=== PATIENT | female | born 1990 | race Caucasian/White ===

== ENCOUNTER → 2017-09-27 | Outpatient (CLI) | payer BC ==
[2017-09-27 11:14] LABS: EOS # 0.3 (0.04-0.40); HEMOGLOBIN 14.8 g/dL (12.5-16.0); LYMPH# 1.4 (1.50-4.00); MEAN CELL VOLUME 96 fl (78-100); MEAN CORPUSCULAR HEMOGLOBIN 32 pg (27-31); MEAN CORPUSCULAR HGB CONC 34 g/dL (33-37); MEAN PLATELET VOLUME 10.7 fl (7.4-10.4); MONO # 0.5 (0.20-0.80); NEU # 4.4 (1.40-6.50); PLATELET COUNT 186 K/mm3 (130-400); RED BLOOD COUNT 4.58 M/mm3 (4.10-5.30); RED CELL DISTRIBUTION WIDTH 12.9 % (11.5-14.5); WHITE BLOOD COUNT 6.6 K/mm3 (4.8-10.8)
[2017-09-27 11:20] LABS: ALBUMIN 4.3 g/dL (3.5-5.0); ALT/SGPT 26 U/L (9-52); AST-SGOT 18 U/L (14-36); BUN/CREATININE RATIO 26.2 (6.0-26.0); CALCIUM 9.1 mg/dL (8.4-10.2); CARBON DIOXIDE 28 mmol/L (22-30); GLUCOSE 96 mg/dL (65-105); SODIUM 143 mmol/L (137-145); TOTAL BILIRUBIN 0.5 mg/dL (0.2-1.3); TOTAL PROTEIN 7.6 g/dL (6.3-8.2)
== END ==
LOC: LAB 10:57
PROVIDERS: Family Medicine
DX: Z01.419 Encounter for gynecological examination (general) (routine) without abnormal findings (principal)

== ENCOUNTER → 2018-05-10 | Outpatient (CLI) | payer BC | LOC: LAB 19:15 | DX: Z32.01 Encounter for pregnancy test, result positive (principal) ==

== ENCOUNTER → 2019-04-24 | Outpatient (CLI) | payer BC | LOC: LAB 11:21 | PROVIDERS: Family Medicine | DX: Z11.1 Encounter for screening for respiratory tuberculosis (principal) ==

== ENCOUNTER → 2021-09-15 | Outpatient (CLI) | payer BC ==
[2021-09-15 15:13] LABS: BASO # 0.03 K/mm3 (0.02-0.10); EOS # 0.03 K/mm3 (0.04-0.40); EOS % 0.7 % (1.0-5.0); HEMOGLOBIN 14.7 g/dL (12.5-16.0); LYMPH# 0.62 K/mm3 (1.50-4.00); MEAN CELL VOLUME 94 fl (78-100); MEAN CORPUSCULAR HEMOGLOBIN 32 pg (27-31); MEAN CORPUSCULAR HGB CONC 34 g/dL (33-37); MEAN PLATELET VOLUME 9.8 fl (7.4-10.4); MONO # 0.47 K/mm3 (0.20-0.80); NEU # 3.18 K/mm3 (1.40-6.50); PLATELET COUNT 179 K/mm3 (130-400); RED BLOOD COUNT 4.56 M/mm3 (4.10-5.30); WHITE BLOOD COUNT 4.3 K/mm3 (4.8-10.8)
[2021-09-15 15:23] LABS: ALBUMIN 4.6 g/dL (3.5-5.0)
[2021-09-15 15:24] LABS: POTASSIUM 3.8 mmol/L (3.5-5.1)
[2021-09-15 15:25] LABS: CALCIUM 9.1 mg/dL (8.3-10.5)
[2021-09-15 15:26] LABS: TOTAL PROTEIN 7.5 g/dL (6.4-8.3)
[2021-09-15 15:28] LABS: TOTAL BILIRUBIN 0.9 mg/dL (0.2-1.2)
== END ==
LOC: AMSURD 14:43
PROVIDERS: Nurse Practitioner Family
DX: J02.9 Acute pharyngitis, unspecified (principal); Z20.822 Contact with and (suspected) exposure to COVID-19

== ENCOUNTER → 2023-12-04 | Outpatient (CLI) | payer BC ==
[2023-12-04 16:20] LABS: BASO # 0.03 K/mm3 (0.02-0.10); EOS # 0.06 K/mm3 (0.04-0.40); EOS % 0.6 % (1.0-5.0); HEMATOCRIT 38.6 % (37.0-47.0); HEMOGLOBIN 13.1 g/dL (12.5-16.0); LYMPH# 0.91 K/mm3 (1.50-4.00); MEAN CELL VOLUME 95 fl (78-100); MEAN CORPUSCULAR HEMOGLOBIN 32 pg (27-31); MEAN CORPUSCULAR HGB CONC 34 g/dL (33-37); MEAN PLATELET VOLUME 10.1 fl (7.4-10.4); MONO # 0.57 K/mm3 (0.20-0.80); NEU # 8.79 K/mm3 (1.40-6.50); PLATELET COUNT 204 K/mm3 (130-400); RED BLOOD COUNT 4.08 M/mm3 (4.10-5.30); RED CELL DISTRIBUTION WIDTH 12.1 % (11.5-14.5); WHITE BLOOD COUNT 10.4 K/mm3 (4.8-10.8)
[2023-12-04 16:28] LABS: CALCIUM 9.6 mg/dL (8.3-10.5)
== END ==
LOC: LAB 16:08
PROVIDERS: Nurse Practitioner Family
DX: R35.0 Frequency of micturition (principal); R42 Dizziness and giddiness

== ENCOUNTER → 2024-06-10 | Outpatient (CLI) | payer BC | LOC: RAD 12:22 | DX: M54.2 Cervicalgia (principal) ==